=== PATIENT | female | born 1965 | race Caucasian/White ===

== ENCOUNTER 2020-01-14 07:03 | Emergency (ER) | payer OTHER ==
[2020-01-14] MEDS ORDERED: cefTRIAXone VIAL(*) 1,000 MG VIAL IM ONE (07:28)
[2020-01-14] MEDS ORDERED: Lidocaine 1% MPF* 2 ML VIAL INJ ONE (07:29)
[2020-01-14 07:33] VITALS: BP 170/96
--- NOTE | 2020-01-14 08:26 | ED ---
GI/ HPI - HPI Summary HPI Summary: 54 yo WF p/w urethral pain on urination with frequency,urgency x1 day associated with chills sweats x over 1 week - History of Current Complaint Chief Complaint: UCGU Time Seen by Provider: 01/14/20 07:13 Stated Complaint: URINARY ISSUE Hx Obtained From: Patient Onset/Duration: Started Days Ago Timing: Lasting Days Severity: Moderate Current Severity: Moderate Pain Intensity: 6 Location of Pain: Other - urethra Pain Characteristics: Sharp, Burning Associated Signs and Symptoms: Positive: Back Pain, Fever, Dysuria, Flank Pain, Chills. Negative: Hematuria - Allergy/Home Medications Allergies/Adverse Reactions: Allergies Allergy/AdvReac Type Severity Reaction Status Date / Time peanut Allergy Swelling Verified 01/14/20 07:34 Home Medications: Home Medications Calcium Carbonate CHEW TAB* [Tums*] 500 mg PO DAILY 01/14/20 [History Confirmed 01/14/20] Famotidine TAB* [Pepcid 20 MG TAB*] 20 mg PO DAILY 01/14/20 [History Confirmed 01/14/20] Fluticasone NASAL SPRAY 50MCG* [Flonase NASAL SPRAY 50MCG*] 2 spray BOTH NARES DAILY 01/14/20 [History Confirmed 01/14/20] Metoprolol Tartrate TAB* [Lopressor TAB*] 50 mg PO DAILY 01/14/20 [History Confirmed 01/14/20] Multivitamins/Minerals TAB* [Thera M Plus TAB*] 1 tab PO DAILY 01/14/20 [ History Confirmed 01/14/20] amLODIPine TAB* [Norvasc 5 mg TAB*] 10 mg PO DAILY 01/14/20 [History Confirmed 01/14/20] cefUROXime axetiL [Cefuroxime] 500 mg PO BID 10 Days #20 tablet 01/14/20 [Rx] PMH/Surg Hx/FS Hx/Imm Hx Previously Healthy: Yes Cardiovascular History: Reports: Hx Hypertension - Surgical History Surgery Procedure, Year, and Place: tonsillectomy Infectious Disease History: Yes Infectious Disease History: Reports: Hx Shingles Denies: Traveled Outside the [place] in Last 30 Days - Social History Alcohol Use: Weekly Substance Use Type: Reports: None Smoking Status (MU): Former Smoker Review of Systems Positive: Fever, Chills, Fatigue Eyes: Negative ENT: Negative Cardiovascular: Negative Respiratory: Negative Gastrointestinal: Negative Positive: see HPI, burning, dysuria, frequency, flank pain, pain, urgency. Negative: hematuria Musculoskeletal: Negative Skin: Negative Neurological/Mental Status: Negative All Other Systems Reviewed And Are Negative: Yes Physical Exam - Summary Physical Exam Summary: Gen: NAD Eye Exam: Normal Eyes: Positive: Conjunctiva Clear ENT: Normal ENT inspection Neck: Supple Respiratory: Lungs clear, Normal breath sounds. Cardiovascular Exam: Normal, RRR, S1, S2 Abdomen: left CVAT, +suprapubic pressure Musculoskeletal Exam: Normal Neurological Exam: Normal Psychological Exam: Normal Skin Exam: Normal Vital Signs On Initial Exam: Initial Vitals Temp Pulse Resp BP Pulse Ox 36.7 C 68 16 170/96 99 01/14/20 07:29 01/14/20 07:29 01/14/20 07:29 01/14/20 07:29 01/14/20 07:29 Diagnostics - Vital Signs Vital Signs Temp Pulse Resp BP Pulse Ox 01/14/20 07:29 36.7 C 68 16 170/96 99 - Laboratory Lab Results: Lab Results 01/14/20 Range/Units 07:42 POC Urine Color Yellow POC Urine Clarity Clear POC Urine pH 5.5 (5-9) POC Ur Specif [place] 1.010 (1.010-1.030) POC Urine Protein Negative (Negative) POC Ur Glucose (UA) Negative (Negative) POC Urine Ketones Negative (Negative) POC Urine Blood Negative (Negative) POC Urine Nitrite Negative (Negative) POC Urine Bilirubin Negative (Negative) POC Urine Urobilinogen 0.2 (Negative) POC U Leukocyte Esteras Negative (Negative) Lab Statement: Any lab studies that have been ordered have been reviewed, and results considered in the medical decision making process. GIGU Course/Dx - Course Assessment/Plan: UA neg but sx just started yesterday, pt also has bodyaches and chills, rapid flu is negative. Will treat for UTI with Ceftin 500 mg twice a day 10 days. - Diagnoses Provider Diagnoses: UTI (urinary tract infection) Discharge ED - Sign-Out/Discharge Documenting (check all that apply): Patient Departure All imaging exams completed and their final reports reviewed: No Studies - Discharge Plan Condition: Stable Disposition: HOME Prescriptions: cefUROXime axetiL [Cefuroxime] 500 mg PO BID 10 Days #20 tablet Patient Education Materials: Urinary Tract Infection in Women (ED) Referrals: Queta Maciel MD [Primary Care Provider] - - Billing Disposition and Condition Condition: STABLE Disposition: Home
[2020-01-14 08:35] LABS: Influenza A Molecular Negative (Negative); Influenza B Molecular Negative (Negative)
== END 2020-01-14 09:10 | disposition home or self-care (01) ==
LOC: UCEAST 07:03
DX: N39.0 Urinary tract infection, site not specified (principal); I10 Essential (primary) hypertension; Z91.010 Allergy to peanuts; Z79.899 Other long term (current) drug therapy; Z87.891 Personal history of nicotine dependence
CPT/HCPCS: 81003; 87086; 99202; G0463; J0696